=== PATIENT | female | born 1990 ===

== ENCOUNTER 2022-07-18 03:34 | Inpatient (IN) | payer OTHER ==
[2022-07-18] MEDS ORDERED: Lidocaine 1% 50 ML MDV INJECT PRN (04:36)
[2022-07-18] MEDS ORDERED: Misoprostol 200 MCG Tab PO PRN (04:36)
[2022-07-18] MEDS ORDERED: Tranexamic Acid 1,000 MG in Sodium Chloride 0.9% 100 ML IV PRN (04:36)
[2022-07-18] MEDS ORDERED: Sodium Chloride 0.9% 10 ML Syringe FLUSH PRN (04:36)
[2022-07-18] MEDS ORDERED: Sodium Chloride 0.9% 20 ML SDV IV PRN (04:36)
[2022-07-18] MEDS ORDERED: Sodium Chloride 0.9% 2.5 ML Syringe FLUSH PRN (04:36)
[2022-07-18] MEDS ORDERED: Butorphanol 1 MG/ML SDV IVPUSH PRN (04:36)
[2022-07-18] MEDS ORDERED: Carboprost Tromethamine 250 MCG/1 ML Amp IM PRN (04:36)
[2022-07-18] MEDS ORDERED: Methylergonovine 0.2 MG/1 ML Amp IM PRN (04:36)
[2022-07-18] MEDS ORDERED: Water For Irrigation,Sterile 1,000 ML Container IRR PRN (04:36)
[2022-07-18] MEDS ORDERED: Oxytocin/0.9 % Sodium Chloride 30 UNIT/500 ML BAG IV SCH ×2 (04:45→13:00)
[2022-07-18] MEDS: Lactated Ringers 1,000 ML IV SCH ×4 (04:52→16:43)
[2022-07-18] MEDS ORDERED: Ampicillin 2 GM in Sodium Chloride 0.9% 100 ML IV ONE (05:00)
[2022-07-18] MEDS: Ampicillin 1 GM in Sodium Chloride 0.9% 50 ML IV SCH ×2 (09:11→13:20)
[2022-07-18] MEDS ORDERED: Ropivacaine/PF 400 MG/200 ML PCA ONE (12:22)
[2022-07-18] MEDS ORDERED: ePHEDrine 50 MG/ML SDV IVPUSH PRN (12:38)
[2022-07-18] MEDS ORDERED: Phenylephrine HCl 0.5 MG/5 ML AMP IVPUSH PRN (12:38)
[2022-07-18] MEDS ORDERED: Ropivacaine HCl/PF 400 MG in Premix Bag 1 BAG EPIDUR SCH (12:45)
[2022-07-18] MEDS ORDERED: Hydrocortisone 2.5% Crm 30 GM Tube TOP PRN (17:35)
[2022-07-18] MEDS ORDERED: Lanolin 100% Cream 7 GM Tube TOP PRN (17:35)
[2022-07-18] MEDS ORDERED: Acetaminophen 500 MG Tab PO PRN ×2 (17:35)
[2022-07-18] MEDS ORDERED: Witch Hazel Medicated Pads 40/Jar TOP PRN (17:35)
[2022-07-18] MEDS ORDERED: Bisacodyl 10 MG Supp RECTAL PRN (17:35)
[2022-07-18] MEDS ORDERED: oxyCODONE 5 MG Tab PO PRN (17:35)
[2022-07-18] MEDS ORDERED: Ibuprofen 400 MG Tab PO PRN (17:35)
[2022-07-18] MEDS ORDERED: Benzocaine/Menthol 20%-0.5% Spray 78 GM Cannister TOP PRN (17:35)
[2022-07-18] MEDS ORDERED: Docusate Sodium 100 MG Cap PO PRN (17:35)
[2022-07-18] MEDS: Ibuprofen 800 MG Tab PO PRN (18:57)
[2022-07-18] MEDS: Labetalol 100 MG Tab PO SCH (21:33)
[2022-07-19] MEDS: Ibuprofen 800 MG Tab PO PRN ×3 (03:06→21:13)
[2022-07-19] MEDS: Labetalol 100 MG Tab PO SCH ×2 (08:57→21:00)
[2022-07-20] MEDS: Labetalol 100 MG Tab PO SCH (08:26)
[2022-07-20] MEDS ORDERED: Measles, Mumps & Rubella Vaccine 0.5 ML SDV SUBCUT ONE (12:40)
== END 2022-07-20 14:55 | disposition home or self-care (01) | DRG 807 ==
LOC: MW.OBCHECK 03:34 → MW.OB 03:36 → MW.OBCHECK 04:36 → MW.OB 04:36 → OBSVTOIN 17:07 → MW.OB 21:01
PROVIDERS: ADMIT Obstetrics & Gynecology; ATTEND Obstetrics & Gynecology
PROC: 10E0XZZ Delivery of Products of Conception, External Approach (ICD-10-PCS; principal; 2022-07-18)
PROC: 0HQ9XZZ Repair Perineum Skin, External Approach (ICD-10-PCS; 2022-07-18)
PROC: 3E0R3BZ Introduction of Anesthetic Agent into Spinal Canal, Percutaneous Approach (ICD-10-PCS; 2022-07-18)
PROC: 00HU33Z Insertion of Infusion Device into Spinal Canal, Percutaneous Approach (ICD-10-PCS; 2022-07-18)
PROC: 3E0134Z Introduction of Serum, Toxoid and Vaccine into Subcutaneous Tissue, Percutaneous Approach (ICD-10-PCS; 2022-07-20)
DX: O13.4 Gestational [pregnancy-induced] hypertension without significant proteinuria, complicating childbirth (principal); Z37.0 Single live birth; Z3A.40 40 weeks gestation of pregnancy; O70.0 First degree perineal laceration during delivery; Z23 Encounter for immunization
CPT/HCPCS: 36415; 51702; 59025; 59409; 82803; 84112; 85014; 85018; 85027; 86592; 86850; 86900; 86901; 90471; 90707; A9270-GY; J0290; J0595; J2590; J2795; J7050; J7120; U0002

== ENCOUNTER 2023-10-03 11:28 | Inpatient (IN) | payer OTHER ==
[2023-10-03] MEDS ORDERED: Butorphanol 2 MG/ML SDV IVPUSH PRN (11:59)
[2023-10-03] MEDS ORDERED: Tranexamic Acid IN NACL,ISO-OS 1,000 MG in Premix Bag 1 BAG IV PRN (11:59)
[2023-10-03] MEDS ORDERED: Carboprost Tromethamine 250 MCG/1 mL Vial IM PRN (11:59)
[2023-10-03] MEDS ORDERED: Water For Irrigation,Sterile 1,000 ML Container IRR PRN (11:59)
[2023-10-03] MEDS ORDERED: Methylergonovine 0.2 MG/1 ML Amp IM PRN (11:59)
[2023-10-03] MEDS ORDERED: Sodium Chloride 0.9% 2.5 ML Syringe FLUSH PRN (11:59)
[2023-10-03] MEDS ORDERED: Lidocaine 1% 50 ML MDV INJECT PRN (11:59)
[2023-10-03] MEDS ORDERED: Misoprostol 200 MCG Tab PO PRN (11:59)
[2023-10-03] MEDS ORDERED: Sodium Chloride 0.9% 10 ML Syringe FLUSH PRN (11:59)
[2023-10-03] MEDS ORDERED: Sodium Chloride 0.9% 20 ML SDV IV PRN (11:59)
[2023-10-03] MEDS: Lactated Ringers 1,000 ML IV SCH (12:20)
[2023-10-03 12:32] LABS: HEMATOCRIT 35.6 % (37.0-47.0); HEMOGLOBIN 12.1 g/dL (12.0-16.0); MEAN CORPUSCULAR HEMOGLOBIN 28.2 pg (28.0-32.0); MEAN PLATELET VOLUME 11.7 fL (9.4-12.3); PLATELET COUNT,PLT 277 K/uL (150-400); RED BLOOD CELL COUNT 4.29 M/uL (4.10-5.30); WHITE BLOOD CELL COUNT,WBC 12.08 K/uL (3.9-11.3)
[2023-10-03] MEDS ORDERED: Ropivacaine HCl/PF 200 ML ONE (12:37)
[2023-10-03] MEDS: Ropivacaine HCl/PF 400 MG in Premix Bag 1 BAG EPIDUR SCH (13:05)
[2023-10-03] MEDS ORDERED: ePHEDrine 50 MG/ML SDV IVPUSH PRN ×2 (13:14)
[2023-10-03] MEDS ORDERED: Phenylephrine HCl In 0.9% NaCl 1 MG/10 ML Syringe IVPUSH PRN (13:14)
[2023-10-03] MEDS ORDERED: dexmedeTOMIDine HCl 200 MCG/2 ML SDV EPIDUR SCH (13:15)
[2023-10-03] MEDS: Ondansetron 4 MG/2 ML SDV IVPUSH PRN (13:32)
[2023-10-03] MEDS: Oxytocin/0.9 % Sodium Chloride 30 UNIT/500 ML BAG IV SCH (15:14)
[2023-10-03] MEDS ORDERED: Docusate Sodium 100 MG Cap PO PRN (16:23)
[2023-10-03 16:39] LABS: PH,UMBILICAL ARTERIAL 7.333 (7.18-7.38); PH,UMBILICAL VENOUS 7.316 (7.25-7.45)
[2023-10-03] MEDS: dexmedeTOMIDine HCl 200 MCG/2 ML SDV ONE (16:40)
[2023-10-03] MEDS: Phenylephrine HCl In 0.9% NaCl 1 MG/10 ML Syringe ONE (16:40)
[2023-10-03] MEDS: Bupivacaine 0.25% 10 ML SDV ONE (16:41)
[2023-10-03] MEDS: fentaNYL 100 MCG/2 ML SDV ONE (16:41)
[2023-10-03] MEDS: Benzocaine/Menthol 20%-0.5% Spray 78 GM Cannister TOP PRN (17:08)
[2023-10-03] MEDS: Witch Hazel Medicated Pads 40/Jar TOP PRN (17:08)
[2023-10-03] MEDS: Lanolin 100% Cream 7 GM Tube TOP PRN (17:09)
[2023-10-03] MEDS: Ibuprofen 800 MG Tab PO PRN (17:09)
[2023-10-03] MEDS: Acetaminophen 500 MG Tab PO PRN (21:24)
[2023-10-04 05:36] LABS: HEMATOCRIT 32.2 % (37.0-47.0); HEMOGLOBIN 10.8 g/dL (12.0-16.0)
[2023-10-04] MEDS ORDERED: Labetalol 100 MG Tab PO SCH (21:00)
== END 2023-10-04 17:22 | disposition home or self-care (01) | DRG 807 ==
LOC: MW.OBCHECK 11:28 → MW.OB 11:29 → MW.OBCHECK 11:59 → MW.OB 11:59 → OBSVTOIN 15:13
PROVIDERS: ADMIT Obstetrics & Gynecology; ATTEND Obstetrics & Gynecology
PROC: 10E0XZZ Delivery of Products of Conception, External Approach (ICD-10-PCS; principal; 2023-10-03)
PROC: 10907ZC Drainage of Amniotic Fluid, Therapeutic from Products of Conception, Via Natural or Artificial Opening (ICD-10-PCS; 2023-10-03)
PROC: 0HQ9XZZ Repair Perineum Skin, External Approach (ICD-10-PCS; 2023-10-03)
PROC: 3E0R3BZ Introduction of Anesthetic Agent into Spinal Canal, Percutaneous Approach (ICD-10-PCS; 2023-10-03)
PROC: 00HU33Z Insertion of Infusion Device into Spinal Canal, Percutaneous Approach (ICD-10-PCS; 2023-10-03)
DX: O99.354 Diseases of the nervous system complicating childbirth (principal); Z37.0 Single live birth; O99.214 Obesity complicating childbirth; G80.9 Cerebral palsy, unspecified; Z3A.39 39 weeks gestation of pregnancy; Z88.0 Allergy status to penicillin; Z88.8 Allergy status to other drugs, medicaments and biological substances; Z88.5 Allergy status to narcotic agent; Z98.890 Other specified postprocedural states
CPT/HCPCS: 36415; 51702; 59025; 59300; 82803; 85014; 85018; 85027; 86592; 86850; 86900; 86901; A9270-GY; J2371; J2405; J2590; J2795; J3010; J3490; J7120